=== PATIENT | female | born 1980 | race Caucasian/White ===

== ENCOUNTER 2018-07-14 09:43 | Observation (INO) | payer OTHER ==
[~2018-07-14] VITALS: Ht 157.5 cm; Wt 65.3 kg
[2018-07-14 10:01] VITALS: BP 133/82
[2018-07-14] MEDS ORDERED: LITHATE5 MG PO (10:05)
[2018-07-14] MEDS ORDERED: SYNTHROID75 MCG PO (10:05)
[2018-07-14] MEDS ORDERED: GEODON20 MG PO (10:05)
[2018-07-14] MEDS ORDERED: STOOL SOFT50 MG/5 ML PO (10:06)
[2018-07-14] MEDS ORDERED: LUVOX 50MG TABL50 M1 PO (10:06)
[2018-07-14] MEDS ORDERED: ZYPREXA20 MG PO (10:06)
[2018-07-14] MEDS ORDERED: CLONAZEPAM 0.50.5 M1 PO (10:06)
[2018-07-14] MEDS ORDERED: REVIA 50 MG TAB50 M1 PO (10:06)
[2018-07-14] MEDS ORDERED: DEPO-PROVER150 MG/M1 IM (10:07)
[2018-07-14 13:00] LABS: ABSOLUTE MONOCYTES 0.5 thou/uL (0.0-1.2); ABSOLUTE NEUTROPHILS 3.1 thou/uL (1.6-8.1); BASOPHILS 0.3 %; HEMATOCRIT 31.5 % (37.0-47.0); HEMOGLOBIN 10.6 gm/dL (12.0-15.0); LYMPHOCYTES 21.4 %; MCH 34.2 pg (26.0-34.0); MCHC 33.7 g/dL (28.0-37.0); MCV 101.4 fL (80.0-100.0); MONOCYTES 10.1 %; MPV 9.3 fl. (7.2-11.1); NUCLEATED RBCS 0 /100WBC; PLATELET COUNT* 179 thou/uL (150-400); POLYS 68.2 %; RBC 3.11 mil/uL (4.20-5.00); RDW-CV 12.9 % (10.5-14.5); WBC 4.5 thou/uL (4.0-11.0)
[2018-07-14 13:01] LABS: CALCIUM 10.2 mg/dL (8.5-10.1); CREATININE 1.7 mg/dL (0.6-1.3); POTASSIUM 4.3 mmol/L (3.5-5.1)
[2018-07-14 13:06] LABS: ALBUMIN 3.4 g/dL (3.4-5.0); TOTAL BILIRUBIN 0.2 mg/dL (<0.1-1.0); TOTAL PROTEIN 6.5 g/dL (6.4-8.2)
[2018-07-14] MEDS ORDERED: GEODON80 MG PO (18:17)
[2018-07-14] MEDS ORDERED: ESKALITH CR450 MG PO (18:18)
[2018-07-14 19:10] VITALS: BP 117/70
[2018-07-14 22:00] VITALS: BP 121/70
[2018-07-15 07:47] LABS: HEMATOCRIT 31.5 % (37.0-47.0); HEMOGLOBIN 10.7 gm/dL (12.0-15.0); MCH 34.3 pg (26.0-34.0); MCHC 34.1 g/dL (28.0-37.0); MCV 100.4 fL (80.0-100.0); MPV 8.5 fl. (7.2-11.1); RBC 3.14 mil/uL (4.20-5.00); RDW-CV 12.7 % (10.5-14.5); WBC 5.7 thou/uL (4.0-11.0)
[2018-07-15 08:00] VITALS: BP 112/86
[2018-07-15 08:09] LABS: CALCIUM 9.6 mg/dL (8.5-10.1); CREATININE 1.8 mg/dL (0.6-1.3); POTASSIUM 3.6 mmol/L (3.5-5.1)
[2018-07-15 12:18] VITALS: BP 112/86
--- NOTE | 2018-07-17 11:06 | CON ---
[address] [address] CONSULTATION Name: MELVIN SWANSON Aric Room: [address] Jef Moss#: [id number] Admission: 07/14/18 Attend Phys: Baljinder Garcia MD Discharge: 07/15/18 Date of : 76 Report #: [id number] THIS REPORT FOR: //name// CC: Yesica Adrienne Garcia HISTORY OF PRESENT ILLNESS: This is a pleasant 37-year-old female with history of autism, childhood schizophrenia, developmental delay and chronic kidney disease, who is presenting with constipation for the last 2 weeks. The patient is unable to provide history and the history is obtained from the patient's father who is at her bedside. The patient's father reports that she has had issues with chronic constipation all her life and the patient at baseline uses MiraLax every day. The patient's father reports that in spite of use of laxatives over the last 2 weeks, the patient has not had any bowel movement. The patient's father reports that this causes intermittent discomfort in her abdomen. PAST MEDICAL HISTORY: Autism, childhood schizophrenia, CKD. PAST SURGICAL HISTORY: None. FAMILY HISTORY: Negative for colorectal cancer. SOCIAL HISTORY: There is no recorded history of alcohol, smoking or recreational drug use. PHYSICAL EXAMINATION: GENERAL: The patient is alert, awake. HEENT: Head is normocephalic, atraumatic. ABDOMEN: Soft. There is no distention or guarding. EXTREMITIES: Warm and well perfused. IMAGING: Abdomen x-ray demonstrates extremely large amount of retained stool throughout the colon and rectum. ASSESSMENT AND PLAN: Pleasant 37-year-old female with past medical history significant for chronic constipation, schizophrenia, autism, and chronic kidney disease who is presenting with inability to pass stool for over 2 weeks. X-ray abdomen demonstrates a large amount of retained stool throughout the colon and rectum. An enema was performed in the ER and the patient was due for flex sig in the morning. However, the patient was doing very procedure could not be performed. I offered the patient's family flex sig tomorrow, but given history of other medical comorbidities, the patient's family requested to leave and present to the outpatient. I have discussed this with [place] [address] CONSULTATION Name: MELVIN SWANSON Room: [address] Jef Moss#: [id number] Admission: 07/14/18 Attend Phys: Baljinder Garcia MD Discharge: 07/15/18 Date of : 76 Report #: [id number] able to accommodate her at 12:30 tomorrow at [facility]. We will see her at 12:30 tomorrow for a flexible sigmoidoscopy. <ELECTRONICALLY SIGNED> By: Bakari Khalil MD 07/17/18 1106 [id number] Roz Khalil MD /navdeep
== END 2018-07-15 13:50 | disposition home or self-care (01) ==
LOC: M.ERS 09:43 → M.2W 17:24 → M.TBA-ER 17:24 → M.2W 17:24
PROVIDERS: Nurse Practitioner Family; ADMIT Family Medicine
DX: K56.41 Fecal impaction (principal); F84.0 Autistic disorder; F84.5 Asperger's syndrome; D64.9 Anemia, unspecified; E03.9 Hypothyroidism, unspecified; N18.4 Chronic kidney disease, stage 4 (severe); Z79.899 Other long term (current) drug therapy

== ENCOUNTER 2018-07-25 12:48 | Inpatient (IN) | payer OTHER ==
[~2018-07-25] VITALS: Ht 162.6 cm; Wt 70.3 kg
--- NOTE | ~2018-07-25 | CON ---
[address] [address] CONSULTATION Name: SKYMELVIN J Room: [address] IN M.R.#: [id number] Admission: 07/25/18 Attend Phys: Prerna Coronado Discharge: Date of : 76 Report #: [id number] THIS REPORT FOR: //name// CC: Jaime Phillips DATE OF SERVICE: 07/26/2018 HISTORY OF PRESENT ILLNESS: The patient is known to us from her previous hospitalization. The patient has past medical history significant for autism, schizophrenia, chronic kidney disease and chronic constipation. The patient at baseline has chronic constipation and passes bowel movement only every 1-2 weeks. She presented to the hospital 10 days back with fecal impaction and abdominal distention. At that time, the patient was discharged and an outpatient flexible sigmoidoscopy was scheduled the following day. The patient has had no further bowel movement since that procedure. The patient's family is at bedside who report increasing abdominal distention, discomfort and pain. They report no bowel movements and no other symptoms such as hematochezia. PAST MEDICAL HISTORY: As mentioned above. The patient has a past medical history significant for autism, schizophrenia, CKD, and constipation. PAST SURGICAL HISTORY: None. FAMILY HISTORY: Significant for coronary artery disease. SOCIAL HISTORY: The patient lives at home with her parents. There is no known history of alcohol, smoking or recreational drug use. REVIEW OF SYSTEMS: Negative except for what was mentioned in the HPI. PHYSICAL EXAMINATION: VITAL SIGNS: Temperature 36.4, pulse rate 80, respirations 16, blood pressure 121/66, pulse ox 99% on room air. GENERAL: The patient is alert and awake. HEENT: Pupils are equal, round, reactive to light and accommodation. Mucous membranes are moist. There is no congestion. LUNGS: Clear to auscultation bilaterally. CARDIOVASCULAR: Rate and rhythm regular, S1, S2 present. ABDOMEN: Soft. There is no distention, guarding or rigidity. SKIN: Warm and dry. NEUROLOGIC: There is no focal neurological deficit. LABORATORY DATA: Hemoglobin 11.5, hematocrit 34.3, platelet count 188, WBC count 3.4. Sodium 149, potassium 4.9, chloride 113, bicarb 26, BUN 13, [place] [address] CONSULTATION Name: MELVIN SWANSON Room: [address] IN [facility]#: [id number] Admission: 07/25/18 Attend Phys: Prerna Coronado Discharge: Date of : 76 Report #: [id number] creatinine 1.8. Abdomen and pelvis CT performed reveals large amount of retained stool throughout the colon and fluid filled distention of gallbladder. No bowel obstruction, ascites or free air. ASSESSMENT AND PLAN: This is a pleasant 37-year-old female with past medical history significant for autism, schizophrenia, chronic kidney disease, and chronic constipation who is presenting with inability to pass stool for the last 10 days. Would recommend continuing her home Linzess and will put her on for a flexible sigmoidoscopy today. The plan is to instill the colon with GoLYTELY and see if that helps her in passing bowel movements. Going forward, the patient will have to continue to take her Linzess at home and we will have to devise a way to give the patient a large dose of MiraLax. GoLYTELY is isosmotic enhancement better as far as her chronic kidney disease is concerned; however, the patient apparently does not like the taste and will not be able to tolerate it. I also discussed with the parents the possibility of putting in an NG tube and performing a lavage with GoLYTELY, but they report that the patient will not tolerate it and will pull the tube out. Further recommendations will be based on the results of the endoscopy. By: [id number] Khalil MD /nt
[~2018-07-25 12:48] MED LIST: CLONAZEPAM 0.50.5 M1 PO; DEPO-PROVER150 MG/M1 IM; ESKALITH CR450 MG PO; GEODON20 MG PO; GEODON80 MG PO; LITHATE5 MG PO; LUVOX 50MG TABL50 M1 PO; REVIA 50 MG TAB50 M1 PO; STOOL SOFT50 MG/5 ML PO; SYNTHROID75 MCG PO; ZYPREXA20 MG PO
[2018-07-25 12:58] VITALS: BP 121/66
[2018-07-25 16:19] LABS: URINE BILIRUBIN NEGATIVE (Negative); URINE BLOOD NEGATIVE (Negative); URINE CLARITY CLEAR; URINE COLOR YELLOW; URINE GLUCOSE-RANDOM NEGATIVE (Negative); URINE KETONES NEGATIVE (Negative); URINE LEUKOCYTES-REFLEX NEGATIVE (Negative); URINE NITRITE-REFLEX NEGATIVE (Negative); URINE PROTEIN NEGATIVE (Negative); URINE SPECIFIC GRAVITY <= 1.005 (1.005-1.030); URINE UROBILINOGEN 0.2 E.U./dl (0.2-1.0)
[2018-07-25 18:40] VITALS: BP 00/00
[2018-07-26 16:37] LABS: ABSOLUTE LYMPHOCYTES 1.2 thou/uL (0.8-5.3); ABSOLUTE MONOCYTES 0.5 thou/uL (0.0-1.2); ABSOLUTE NEUTROPHILS 3.1 thou/uL (1.6-8.1); BASOPHILS 0.6 %; EOSINOPHILS 0.1 %; HEMATOCRIT 34.3 % (37.0-47.0); HEMOGLOBIN 11.5 gm/dL (12.0-15.0); LYMPHOCYTES 24.4 %; MCH 33.8 pg (26.0-34.0); MCHC 33.5 g/dL (28.0-37.0); MCV 100.9 fL (80.0-100.0); MONOCYTES 9.8 %; MPV 9.8 fl. (7.2-11.1); NUCLEATED RBCS 0 /100WBC; PLATELET COUNT* 188 thou/uL (150-400); POLYS 65.1 %; RDW-CV 12.9 % (10.5-14.5); WBC 4.7 thou/uL (4.0-11.0)
[2018-07-26 16:41] LABS: CALCIUM 10.4 mg/dL (8.5-10.1); CREATININE 1.8 mg/dL (0.6-1.3); POTASSIUM 4.9 mmol/L (3.5-5.1)
[2018-07-27 08:45] VITALS: BP 149/94
[2018-07-27 13:57] VITALS: BP 149/94
[2018-07-27] MEDS ORDERED: MIRALAX17 GM PO (14:13)
[2018-07-27 15:24] VITALS: BP 149/94
== END 2018-07-27 15:00 | disposition home or self-care (01) | DRG 388 ==
LOC: M.ERS 12:48 → M.TBA-ER 16:18 → M.3W 16:18
PROVIDERS: Nurse Practitioner Family; ADMIT Internal Medicine
PROC: 3E1H88Z Irrigation of Lower GI using Irrigating Substance, Via Natural or Artificial Opening Endoscopic (ICD-10-PCS; principal; 2018-07-26)
DX: K56.41 Fecal impaction (principal); N17.0 Acute kidney failure with tubular necrosis; E87.1 Hypo-osmolality and hyponatremia; F84.0 Autistic disorder; N18.3 Chronic kidney disease, stage 3 (moderate); Z82.49 Family history of ischemic heart disease and other diseases of the circulatory system; F20.9 Schizophrenia, unspecified